=== PATIENT | male | born 1975 | race Caucasian/White ===

== ENCOUNTER → 2023-12-03 08:26 | Outpatient (REF) | payer OTHER, SELFPAY | LOC: RAD 08:26 | PROVIDERS: ATTENDING PHYSICIAN Internal Medicine Gastroenterology; FAMILY PHYSICIAN Family Medicine | DX: R10.13 Epigastric pain (principal) | CPT/HCPCS: 76700 ==

== ENCOUNTER → 2024-02-04 06:29 | Day surgery (SDC) | payer OTHER, SELFPAY | LOC: GI 06:29 | PROVIDERS: ATTENDING PHYSICIAN Internal Medicine Gastroenterology | DX: K44.9 Diaphragmatic hernia without obstruction or gangrene (principal); K31.7 Polyp of stomach and duodenum; R10.13 Epigastric pain | CPT/HCPCS: 43239; 88305; 88342 ==

== ENCOUNTER → 2024-07-02 13:08 | Outpatient (REF) | payer OTHER, SELFPAY | LOC: RCS 13:08 | PROVIDERS: ATTENDING PHYSICIAN Internal Medicine Cardiovascular Disease; FAMILY PHYSICIAN Family Medicine | DX: I25.10 Atherosclerotic heart disease of native coronary artery without angina pectoris (principal) | CPT/HCPCS: 93017 ==

== ENCOUNTER 2024-12-25 16:56 | Observation (INO) | payer OTHER, SELFPAY ==
[2024-12-25 15:10] VITALS: BP 162/119
[2024-12-25 15:13] LABS: Glucose - Point of Care 127 mg/dl (70-99)
--- NOTE | 2024-12-25 15:16 | ED.CVA ---
History of Present Illness
<Dragan Larson PA-C - Last Filed: 12/25/24 19:08>
General
Chief Complaint: CVA/TIA Symptoms
Source: patient and ambulance crew
Time Seen by Provider: 12/25/24 15:08
Onset of Stroke Symptoms
Onset of symptoms known: Yes
Date of onset of symptoms: 12/25/24
Time of onset of symptoms: 14:20
History of Present Illness
History of Present Illness:
49-year-old male with past medical history of hyperlipidemia presenting to the emergency department for evaluation after he was sitting on his couch holding his iPad doing some work when he noticed numbness to fingertips on the right that started to
go up his arm and into the right side of his face which has been constant. Patient states that he feels like he needs to talk out of the left side of his mouth due to the right side not functioning properly. Denies any history of similar, denies
any headaches. Denies any chest pain, shortness of breath, palpitations, visual disturbances, lower extremity symptoms or any other concerns. Patient notes that his grandmother had a history of CVA and that his mother and brother have a history of
a clotting disorder but patient himself does not have any diagnosed clotting disorder. He is not on any anticoagulant medication. Social history was negative for any cigarette or tobacco use.
Past History
<Dragan Larson PA-C - Last Filed: 12/25/24 19:08>
Past History
ED Past Medical History: Hypercholesterolemia
ED Past Surgical History: None
Social History
Tobacco: Non-smoker
Alcohol: None
Drug: None
Personal:
Living: with family
Employment: Employed
Family History
Family History: Other (Grandmother CVA)
Review of Systems
<Dragan Larson PA-C - Last Filed: 12/25/24 19:08>
Review of Systems
All Other Systems: ROS reviewed and negative except as documented in HPI and ROS
Phy Exam
<Dragan Larson PA-C - Last Filed: 12/25/24 19:08>
Physical Exam
Physical Exam:
GENERAL: Alert , in no apparent distress
EYE: pupils equal and reactive, 4 mm bilateral, EOMI, no field cuts
NECK: Supple
ENT: o/p clr, mmm. No tongue deviation or fasciculation
CARDIAC: Regular rate and rhythm , no murmur.
LUNGS: Clear breath sounds bilaterally, no acute respiratory distress, no wheezes/rales/rhonchi
ABDOMEN: Soft, without focal tenderness, no r/g, no cvat
NEUROLOGICAL: Alert and oriented, mild right-sided facial droop, sensory to the right upper extremity slightly diminished when compared to the left
SKIN: Warm and dry, skin intact.
MUSCULOSKELETAL: No edema, well perfused.
PSYCH: Normal and appropriate interaction.
Scores
<Dragan Larson PA-C - Last Filed: 12/25/24 19:08>
NIH Stroke Score
Level of Consciousness: 0 - Alert
LOC Questions: 0-Answers both correctly
LOC Commands: 0-Performs both correctly
Best Horizontal Gaze: 0-Normal
Visual [place]: 0=Normal, no visual loss
Facial Palsy: 1=Minor paralysis
Motor - Right Arm: 0=No drift 10 seconds
Motor - Left Arm: 0=No drift 10 seconds
Motor - Right Le-No drift 5 seconds
Motor - Left Le-No drift 5 seconds
Limb Ataxia: 0-Absent
Sensation: 1-Mild loss
Best Language: 0-No aphasia
Dysarthria: 0-Normal
Extinction and Inattention: 0-No abnormality
Total Score:: 2
Thrombolytic Contraindication
Inclusion and Exclusion criteria reviewed: Yes
IAT Contraindications: NIHSS < 6
Heart Failure Risk
Heart Failure Risk Score: Not Applicable
Heart Score for Chest Pain Patients
STEMI patient?: Not applicable
Withdrawal Assessment of Alcohol
Withdrawal Assessment Completed?: Not applicable
<Cruz Thapa DO - Last Filed: 12/25/24 15:27>
NIH Stroke Score
Total Score:: 2
Course
<Dragan Larson PA-C - Last Filed: 12/25/24 19:08>
Orders/Labs/Results
Orders:
Orders
12/25/24 15:09
Electrocardiogram (*1) Urgent
Reason for Study: TIA/Stroke
12/25/24 15:10
EKG- Treatment ONCE
12/25/24 15:14
CT HEAD STROKE ALERT W/o Cont Urgent
Comment:
Reason For Exam: RUE numbness/right facial droop
CT HEAD/NECK ANG STROKE ALERT Urgent
Comment:
Reason For Exam: RUE numbness/right facial droop
Cardiac Monitoring- Treatment ONCE
12/25/24 15:15
Electrocardiogram (*1) Stat
Reason for Study: Other
Other Reason for Exam: neuro symptoms
EKG- Treatment ONCE
12/25/24 15:21
Complete Blood Count/With Diff Urgent
Comprehensive Metabolic Panel Urgent
Direct Bilirubin Urgent
LDH Urgent
PTT Urgent
Prothrombin Time Urgent
Reticulocyte Count Urgent
Comment: ADD ON
Troponin I Urgent
12/25/24 15:25
0.9% Sodium Chloride 1000 ml [Nss] 1,000 ml IV BOLUS
12/25/24 15:58
Clopidogrel Bisulfate [Plavix] 600 mg PO NOW STA
12/25/24 16:28
Add On- LAB Routine
Tests Added?: LDH, retics, direct bili
12/25/24 16:30
US Abdomen Complete/Upper Routine
Comment:
Reason For Exam: elevated bili
12/25/24 16:38
Admit/Transfer Patient As Directed
Co-Sign Provider:
Level of Care: Observation services
Assign to:: Telemetry
Physician / Group: Haresh Rivers
Diagnosis: CVA/TIA
Reason for Telemetry: CVA/TIA
Date to Stop Telemetry: 12/28/24
Time to Stop Telemetry: 11:00
PRN Pain Medication Management As Directed
May give lesser potent ordered pain med per pt: Yes
preference::
Protocol:: Medication orders for pain may be administered in a
manner that supports deferring to patient preference
when the pt is:
- Requesting an ordered lesser potent pain medication.
Least to most potent pain medications are defined
as: acetaminophen < NSAID < tramadol < opioids
(morphine, oxycodone, hydromorphone).
- Requesting a lesser dose of the same medication IF
ORDERED.
- Requesting a less intrusive route of administration
if both routes are prescribed by the provider (PO <
IV).
12/25/24 16:40
Code Status As Directed
Resuscitation Status: Full Code
12/25/24 16:48
MR Brain Without Contrast Routine
Comment:
Reason For Exam: stroke
OK for patient to be off Cardiac Monitoring for MRI: No
Recent pill cam endoscopy?: No
12/25/24 17:32
Hemoglobin A1c [Glycohemoglobin (HgbA1c)] Routine
Lipid Profile [Cardiovascular Evaluation] Routine
12/25/24 18:46
Acetaminophen [Tylenol] 650 mg PO Q4HPRN PRN
Atorvastatin [Lipitor] 80 mg PO QPM
KCl 20 Meq/D5.9%Sodchl 1000 ml [D5/0.9% with KCL 20 MEQ] 20 meq in 1,000 ml IV 100 mls/hr
Labetalol HCl [Trandate] 10 mg IV Q6HPRN PRN
12/25/24 18:46
Echo 2D MMode Color/Doppler Routine
Reason for Study: stroke/TIA
Case Management Consult ONCE
Case Management Consult: Discharge Planning
Comment: stroke/tia
DIETARY IP CONSULT Routine
Reason for Consult: stroke/TIA
NEUROLOGY CONSULT Urgent
Consulting Provider: Peggy Collins
Was physician already notified: Yes
[facility] Practitioner Urgent
MR Brain Without Contrast Routine
Comment:
Reason For Exam: stroke/TIA
Recent pill cam endoscopy?: No
Activity As Directed
Activity Level: Out of Bed-Early Mobility
INT (Intravenous Needle Therapy) As Directed
NIH Stroke Scale As Directed
Directions: Per protocol
Comment: every shift and with any change in condition or mental status
Neurological Checks As Directed
Frequency: q4h
Additional Instructions:: q4h x 24h upon admission to the floor, then qshift & with any change in condition
and mental status
Patient Education As Directed
Type: Stroke education packet
Comment: provide to patient and family
Pneumatic Compression Sleeves As Directed
Type: Knee high
Swallow Screening CVA/TIA ONLY As Directed
Comment: NPO until swallowing screening completed
If patient FAILS swallow screening:: NPO, Speech Therapy consult, Aspiration Precautions
If patient PASSES swallow screening, diet:: Cholesterol Lowering
Vital Signs As Directed
Frequency: Per unit guidelines
Ot Eval And Treat Routine
Pt Eval And Treat Routine
Activity Level: Out of Bed-Early Mobility
Speech Therapy Eval & Treat Routine
DX Deep Vein Thrombosis Video Routine
12/25/24 20:00
Thiamine HCl [Vitamin B1] 100 mg PO BID
12/25/24 22:00
Aspirin Low Dose EC [Aspir Low (Enteric Coated)] 81 mg PO HS
Ezetimibe [Zetia] 10 mg PO HS
12/26/24 06:00
Cardiovascular Evaluation IN AM
Hepatitis B Core Ab, Total IN AM
Hepatitis B Surface Antibody IN AM
Hepatitis B Surface Antigen IN AM
Hepatitis C Antibody IN AM
LFT [[id number]-[id number]] IN AM
TSH IN AM
12/26/24 08:00
Clopidogrel Bisulfate [Plavix] 75 mg PO DAILY
FOLic ACID [Folvite] 1 mg PO DAILY
12/28/24 11:00
DC Protocol for Telemetry ONCE
Abnormal Lab Results
12/25/24 12/25/24
15:12 15:21
MCH 32.2 H pg
(27.0-31.0)
Monocytes % 10.6 H %
(1.7-9.3)
Glucose 131 H mg/dl
(70-99)
Total Bilirubin 2.3 H mg/dl
(0.2-1.3)
ALT 60 H U/L
(0-50)
POC Glucose 127 H mg/dl
(70-99)
12/25/24 15:21
12/25/24 15:21
Vital Signs
Initial and Last Documented VS:
Initial Vital Signs
Temp Pulse Resp BP Pulse Ox
98.2 F 87 18 162/119 96
12/25/24 15:10 12/25/24 15:10 12/25/24 15:10 12/25/24 15:10 12/25/24 15:10
Last Documented Vital Signs
Temp Pulse Resp BP Pulse Ox
98.2 F 87 18 162/119 96
12/25/24 15:10 12/25/24 15:10 12/25/24 15:10 12/25/24 15:10 12/25/24 15:10
<Cruz Thapa, DO - Last Filed: 12/25/24 15:27>
Orders/Labs/Results
Orders:
Orders
12/25/24 15:09
Electrocardiogram (*1) Urgent
Reason for Study: TIA/Stroke
12/25/24 15:10
EKG- Treatment ONCE
12/25/24 15:14
CT HEAD STROKE ALERT W/o Cont Urgent
Comment:
Reason For Exam: RUE numbness/right facial droop
CT HEAD/NECK ANG STROKE ALERT Urgent
Comment:
Reason For Exam: RUE numbness/right facial droop
Cardiac Monitoring- Treatment ONCE
12/25/24 15:15
Electrocardiogram (*1) Stat
Reason for Study: Other
Other Reason for Exam: neuro symptoms
EKG- Treatment ONCE
12/25/24 15:21
Complete Blood Count/With Diff Urgent
Comprehensive Metabolic Panel Urgent
Direct Bilirubin Urgent
LDH Urgent
PTT Urgent
Prothrombin Time Urgent
Reticulocyte Count Urgent
Comment: ADD ON
Troponin I Urgent
12/25/24 15:25
0.9% Sodium Chloride 1000 ml [Nss] 1,000 ml IV BOLUS
12/25/24 15:58
Clopidogrel Bisulfate [Plavix] 600 mg PO NOW STA
12/25/24 16:28
Add On- LAB Routine
Tests Added?: LDH, retics, direct bili
12/25/24 16:30
US Abdomen Complete/Upper Routine
Comment:
Reason For Exam: elevated bili
12/25/24 16:38
Admit/Transfer Patient As Directed
Co-Sign Provider:
Level of Care: Observation services
Assign to:: Telemetry
Physician / Group: Haresh Rivers
Diagnosis: CVA/TIA
Reason for Telemetry: CVA/TIA
Date to Stop Telemetry: 12/28/24
Time to Stop Telemetry: 11:00
PRN Pain Medication Management As Directed
May give lesser potent ordered pain med per pt: Yes
preference::
Protocol:: Medication orders for pain may be administered in a
manner that supports deferring to patient preference
when the pt is:
- Requesting an ordered lesser potent pain medication.
Least to most potent pain medications are defined
as: acetaminophen < NSAID < tramadol < opioids
(morphine, oxycodone, hydromorphone).
- Requesting a lesser dose of the same medication IF
ORDERED.
- Requesting a less intrusive route of administration
if both routes are prescribed by the provider (PO <
IV).
12/25/24 16:40
Code Status As Directed
Resuscitation Status: Full Code
12/25/24 16:48
MR Brain Without Contrast Routine
Comment:
Reason For Exam: stroke
OK for patient to be off Cardiac Monitoring for MRI: No
Recent pill cam endoscopy?: No
12/25/24 17:32
Hemoglobin A1c [Glycohemoglobin (HgbA1c)] Routine
Lipid Profile [Cardiovascular Evaluation] Routine
12/25/24 18:46
Acetaminophen [Tylenol] 650 mg PO Q4HPRN PRN
Atorvastatin [Lipitor] 80 mg PO QPM
KCl 20 Meq/D5.9%Sodchl 1000 ml [D5/0.9% with KCL 20 MEQ] 20 meq in 1,000 ml IV 100 mls/hr
Labetalol HCl [Trandate] 10 mg IV Q6HPRN PRN
12/25/24 18:46
Echo 2D MMode Color/Doppler Routine
Reason for Study: stroke/TIA
Case Management Consult ONCE
Case Management Consult: Discharge Planning
Comment: stroke/tia
DIETARY IP CONSULT Routine
Reason for Consult: stroke/TIA
NEUROLOGY CONSULT Urgent
Consulting Provider: Peggy Collins
Was physician already notified: Yes
[facility] Practitioner Urgent
MR Brain Without Contrast Routine
Comment:
Reason For Exam: stroke/TIA
Recent pill cam endoscopy?: No
Activity As Directed
Activity Level: Out of Bed-Early Mobility
INT (Intravenous Needle Therapy) As Directed
NIH Stroke Scale As Directed
Directions: Per protocol
Comment: every shift and with any change in condition or mental status
Neurological Checks As Directed
Frequency: q4h
Additional Instructions:: q4h x 24h upon admission to the floor, then qshift & with any change in condition
and mental status
Patient Education As Directed
Type: Stroke education packet
Comment: provide to patient and family
Pneumatic Compression Sleeves As Directed
Type: Knee high
Swallow Screening CVA/TIA ONLY As Directed
Comment: NPO until swallowing screening completed
If patient FAILS swallow screening:: NPO, Speech Therapy consult, Aspiration Precautions
If patient PASSES swallow screening, diet:: Cholesterol Lowering
Vital Signs As Directed
Frequency: Per unit guidelines
Ot Eval And Treat Routine
Pt Eval And Treat Routine
Activity Level: Out of Bed-Early Mobility
Speech Therapy Eval & Treat Routine
DX Deep Vein Thrombosis Video Routine
12/25/24 20:00
Thiamine HCl [Vitamin B1] 100 mg PO BID
12/25/24 22:00
Aspirin Low Dose EC [Aspir Low (Enteric Coated)] 81 mg PO HS
Ezetimibe [Zetia] 10 mg PO HS
12/26/24 06:00
Cardiovascular Evaluation IN AM
Hepatitis B Core Ab, Total IN AM
Hepatitis B Surface Antibody IN AM
Hepatitis B Surface Antigen IN AM
Hepatitis C Antibody IN AM
LFT [[id number]] IN AM
TSH IN AM
12/26/24 08:00
Clopidogrel Bisulfate [Plavix] 75 mg PO DAILY
FOLic ACID [Folvite] 1 mg PO DAILY
12/28/24 11:00
DC Protocol for Telemetry ONCE
Abnormal Lab Results
12/25/24 12/25/24
15:12 15:21
MCH 32.2 H pg
(27.0-31.0)
Monocytes % 10.6 H %
(1.7-9.3)
Glucose 131 H mg/dl
(70-99)
Total Bilirubin 2.3 H mg/dl
(0.2-1.3)
ALT 60 H U/L
(0-50)
POC Glucose 127 H mg/dl
(70-99)
12/25/24 15:21
12/25/24 15:21
Vital Signs
Initial and Last Documented VS:
Initial Vital Signs
Temp Pulse Resp BP Pulse Ox
98.2 F 87 18 162/119 96
12/25/24 15:10 12/25/24 15:10 12/25/24 15:10 12/25/24 15:10 12/25/24 15:10
Last Documented Vital Signs
Temp Pulse Resp BP Pulse Ox
98.2 F 87 18 162/119 96
12/25/24 15:10 12/25/24 15:10 12/25/24 15:10 12/25/24 15:10 12/25/24 15:10
<Dragan Larson PA-C - Last Filed: 12/25/24 19:08>
MDM/Problems Addressed
Differential Diagnosis Includes:
CVA, malignancy, intracranial bleeding, hypertensive urgency, complex/atypical migraine
MDM/Problems Addressed:
49-year-old male presenting to the ER for evaluation after he had sudden onset right upper extremity numbness and facial numbness starting at 2:20 PM this afternoon, symptoms continue on arrival to the ER. Given his presentation, history and family
history decision was made to call a stroke alert. CT and CTA of the head and neck ordered. Patient's arriving blood pressure noted. Will consult with neurology. Disposition pending
<Dragan Larson PA-C - Last Filed: 12/25/24 19:08>
*Radiology
Radiology exam reviewed: radiology read reviewed
*Pulse Oximetry
Patient hypoxic: no
*Critical Care Note
Total Time (30-74mins, 75-104mins- exclusive of procedures): Not Applicable
<Dragan Larson PA-C - Last Filed: 12/25/24 19:08>
Patient Management
Discussion with other providers: Hospitalist and Nurse Practitioner Hospitalist
Escalation/DeEscalation of care consider admission/obs:
3:25 PM: Case discussed with neurology who states that given the patient's low NIH score, will hold on TNK for now. If patient's NIH or symptoms worsen we can then treat with TNK. CT scans pending at this time.
CT scan does show narrowing of the left M2 segment. Neurology is aware of this finding. They are ordering 600 mg Plavix orally. Hospitalist team to admit.
ED Attending Note
<Dragan Larson PA-C - Last Filed: 12/25/24 19:08>
-
Portions of this chart may have been created with voice recognition software.� Occasional wrong word or��sound alike� substitutions may have occurred due to the inherent limitations of voice recognition software.
<Cruz Thapa DO - Last Filed: 12/25/24 15:27>
ED Attending Note
Patient seen and examined by attending physician: Yes
I performed the substantive portion of visit, reviewed & personally made and approve the management plan that is documented in note by myself or CARMEN.: Yes
ED Attending Note:
I have seen and evaluated the patient with a [id number] encounter. I have spoken to the advance practicer provider and involved in the medical history, the physical exam, medical decision making.
Evaluation and management service: agree unless noted differently below.
Results interpretation: agree unless noted differently below.
Focused HPI: 49-year-old male presenting with sudden onset of tingling in his right hand. It did extend to his face. This occurred just about an hour prior to arrival so he called 911
Physical exam: Sitting in bed comfortably. His deficit appears to be sensory
Medical Decision Making: Case discussed with neurology. Will hold TNK at the moment given that his deficits are so minimal. Will consider TNK if symptoms worsen
Discharge Plan
Departure
Patient Disposition: Admit
Date of Disposition: 12/25/24
Time of Disposition: 15:57
Presentation/result/management discussed w/ accepting MD/DO: Hospitalist
Discharge Problem:
Ischemic cerebrovascular accident (CVA)
Interventions
Interventions:
*Risk Screen - Suicide Last Done: 12/25/24 15:10
*General Assessment Last Done: 12/25/24 18:56
*Neglect/Abuse Screening Last Done: 12/25/24 15:10
*ED- Fall Risk Assessment Last Done: 12/25/24 18:56
*ED COVID-19 Vaccine History Last Done: 12/25/24 15:10
*Nursing Disposition Last Done: 12/25/24 18:57
ED- Pulmonary Assessment Last Done: 12/25/24 15:48
ED- Neurological Assessment Last Done: 12/25/24 15:48
ED- Cardiac Assessment Last Done: 12/25/24 15:48
ED Swallowing Screen Last Done: 12/25/24 15:48
Discharge Date and Time
Discharge Date/Time: 12/25/24 18:58
--- NOTE | 2024-12-25 15:33 | CON.NEURO ---
Consultation
Order
Date of Consultation: 12/25/24
Requesting Provider: Dragan Larson PA-C
Reason for Consult: Stroke alert
Called in: [id number]
Neurology Consultation Note.
HPI: This is a 49-year-old right-handed man who presented to [facility] on 12/25/2024 with sensory deficits. According to the patient he developed numbness and tingling in his fingertips, which rapidly progressed to involve the right
side of his face around 2:20 PM. The patient reports difficulty maintaining his balance. No reports of right arm weakness, dysphasia, dysarthria change in vision, headache, abnormal movements with similar episodes in the past.
ER VS: 162/119, 87, afebrile
Labs: Glucose�131, total bilirubin�2.3, ALT�60, normal sodium, creatinine,
CT head wo contrast�no evidence of acute infarct
CTA head/neck�pending
PMH: DLP, accident involvement left hand injury at the age of 49, hepatic steatosis
PSH: Left hand surgery
SH: Non-smoker, feels financial services sales representative at [employer]
FH: Mother�DVT, brother�'rare clotting disorder ', maternal grandmother�stroke
All:NKDA
ROS: Constitutional: Negative. Negative for chills, fever and unexpected weight change.
HENT: Negative for ear pain, hearing loss, tinnitus and trouble swallowing.
Eyes: Negative. Negative for photophobia, pain and visual disturbance.
Respiratory: Negative for cough, choking and shortness of breath.
Cardiovascular: Negative for chest pain, palpitations and leg swelling.
Gastrointestinal: Negative for abdominal pain and vomiting.
Endocrine: Negative. Negative for cold intolerance.
Genitourinary: Negative for dysuria, flank pain and urgency.
Musculoskeletal: Negative for back pain, gait problem, neck pain and neck stiffness.
Skin: Negative for rash.
Allergic/Immunologic: Negative. Negative for immunocompromised state.
Neurological: Positive for right face and arm numbness, imbalance
Psychiatric/Behavioral: Negative for behavioral problems, confusion and hallucinations.
NIH Stroke Scale
1A Level of Consciousness: 0/3
1B LOC Questions: 0/2
1C LOC Commands: 0/2
2 Best Gaze: 0/2
3 Visual: 0/3
4 Facial Palsy: 0/3
5A Motor Arm LEFT: 0/4
5B Motor Arm RIGHT: 0/4
6A Motor Leg LEFT: 0/4
6B Motor Leg RIGHT: 0/4
7 Limb Ataxia: 0/2
8 Sensory: 1/2
9 Best Language: 0/3
10 Dysarthria: 0/2
11 Extinction/Inattention: 0/2
Total NIHSS: 1
Assessment and Plan:
I. Acute left thalamic syndrome. Not a candidate for IV TNK due to low NIH score.
II. HTN
III. DLP
-Continue Telemetry monitoring
-Neurocheck every 15 minutes until outside of of TNK administration window
-Please follow-up CTA results
-Brain MRI without robert
-Plavix 600 mg once followed by 75 mg once a day
-Lipitor 40 mg QHS.
-Please check HbA1C, LDL.
-TTE
-DVT prophylaxis.
I personally reviewed all radiology and labs along with past medical records pertinent to current medical problems. Total time spent in patient care is 60 minutes.
Thank you for allowing us to participate in the care of this patient. We will continue to follow. Please do not hesitate to contact us with any questions or concerns.
Subjective/Objective
Subjective Data
Date of Service: December 25, 2024
Objective Data
Vital Signs
Temp Pulse Resp BP Pulse Ox
36.8 C 87 18 162/119 96
12/25/24 15:10 12/25/24 15:10 12/25/24 15:10 12/25/24 15:10 12/25/24 15:10
Patient Allergies
No Known Allergies Allergy (Unverified 12/25/24 15:15)
[2024-12-25 15:36] LABS: % Basophils 0.2 % (0-2); % Eosinophils 0.5 % (0-6); % Immature Granulocytes 0.2 % (0-0.5); % Lymphocytes 29.8 % (20.5-51.1); % Monocytes 10.6 % (1.7-9.3); % Neutrophils 58.7 % (42.2-75.2); Absolute Lymphocytes 1.7 10^3/uL (1.2-3.4); Absolute Monocytes 0.6 10^3/uL (0.1-0.6); Absolute Neutrophils 3.3 10^3/uL (1.4-6.5); Hematocrit 44.6 % (39.0-52.0); Mean Corp Hgb Conc. 35.9 g/dL (33.0-37.0); Mean Corpuscular Hgb 32.2 pg (27.0-31.0); Mean Corpuscular Volume 89.7 fL (80.0-94.0); Mean Platelet Volume 10.1 fL (7.4-10.4); Nucleated Red Blood Cells % 0 % (-); Platelet Count 255 10^3/uL (130-400); Red Blood Cell Count 4.97 10^6/uL (4.70-6.10); Red Cell Dist. Width 11.9 % (11.5-14.5); White Blood Cell Count 5.7 10^3/uL (4.8-10.8)
[2024-12-25 15:43] LABS: INR 0.87; PT 12.3 Sec (11.4-14.6)
[2024-12-25 15:44] LABS: APTT 28.6 Sec (23.4-35.0)
[2024-12-25 15:45] LABS: ALT (SGPT) 60 U/L (0-50); AST (SGOT) 35 U/L (17-59); Alkaline Phosphatase 69 U/L (38-126); Blood Urea Nitrogen 12 mg/dl (9-20); Carbon Dioxide 25 mmol/L (22-30); Chloride 105 mmol/L (98-107); Glucose 131 mg/dl (70-99); Potassium 4.4 mmol/L (3.5-5.1); Sodium 141 mmol/L (135-145); Total Bilirubin 2.3 mg/dl (0.2-1.3); Total Protein 7.6 g/dl (6.3-8.2); eGFR > 60.00
[2024-12-25] MEDS: NSS 1000 IV (15:45)
[2024-12-25 15:56] LABS: Troponin I < 0.012 ng/ml
--- NOTE | 2024-12-25 16:00 | HPS.HSE ---
Family Physician
-
Family Physician: INTERVIEWE UNKNOWN - PT NOT
Chief Complaint
-
CVA/TIA symptoms
History of Present Illness
Patient is a 49-year-old male with past medical history significant for hyperlipidemia who presented to [facility] ED for evaluation of acute onset of right upper extremity and right facial numbness with onset around 1420 this afternoon. Patient reports
sitting on couch doing work on his Ipad when he experienced numbness and tingling in his right fingers that traveled up arm and into right side of face. Patient states symptoms are improving but continues to have numbness and tingling in right
finger tips. He denies any vision changes, chest pains, shortness of breath, palpitations and no lower extremity symptoms. Patient promptly called 911 for EMS. Patient reports frequent travel for work and flies almost weekly. He denies any
tobacco/smoking history. He reports he as of recent a daily drinker of approximately 3 bourbons a night.
Medical History
Past Medical History
Past Medical History: Reports Other
Additional Past Medical History:
hyperlipidemia
Past Surgical History: Reports None
Social History
Tobacco: Non-smoker
Alcohol: Daily (3- Bourbons daily )
Employment: Employed
Family History
Family History: Other (Father: ASCVD)
Allergies / Home Medications
Allergies reflects when Allergies were last updated in [employer].
Home Medications with original date entered in [employer]
Allergy/Medication List:
Allergies
Allergy/AdvReac Type Severity Reaction Status Date / Time
No Known Allergies Allergy Unverified 12/25/24 15:15
Home Medications
aspirin 81 mg tablet,delayed release 81 mg PO HS 12/25/24
atorvastatin 40 mg tablet 40 mg PO HS 12/25/24
ezetimibe 10 mg tablet 10 mg PO HS 12/25/24
Review of Systems
-
History Source: Patient
Constitutional: Reports No Symptoms
EENT: Reports No Symptoms
Respiratory: Reports No Symptoms
Cardiac: Reports No Symptoms
Abdomen/GI: Reports No Symptoms
: Reports No Symptoms
Musculoskeletal: Reports No Symptoms
Skin: Reports No Symptoms
Neurological: Reports Dizzy and Numbness (right fingers traveled up arm and into right side of face )
Endocrine: Reports No Symptoms
Hematologic/Lymphatic: Reports No Symptoms
Psych: Reports No Symptoms
Physical Exam
Vital Signs
Vital Signs
Temp Pulse Resp BP Pulse Ox
98.2 F 87 18 162/119 96
12/25/24 15:10 12/25/24 15:10 12/25/24 15:10 12/25/24 15:10 12/25/24 15:10
Physical Exam
General: Well Developed, Well Nourished, No Apparent Distress, Comfortable and Conversant
HEENT: NormoCephalic, Moist mucous membranes, Atraumatic, [place] Conjunctivae, Nose Appears Normal and Ears Appear Normal
Respiratory: Clear and Non Labored Respirations
Cardiac: S1/S2 and Regular Rhythm
Breast: Deferred by me
GI: Soft, Non Tender, Non Distended and Normal Bowel Sounds; No Organomegaly
Rectal: Deferred by Provider
Genito-urinary: Deferred by me
Musculoskeletal: No Clubbing, No Cyanosis and No Edema
Skin: No Rash
Neuro: Awake, Alert, AO x 3, Nonfocal/grossly intact, Slurred Speech and Other (right arm weakness )
Psych: Calm and Intact Judgment/Insight
Laboratory Results
-
12/25/24 15:21
12/25/24 15:21
Laboratory Results
PT 12.3 Sec (11.4-14.6) 12/25/24 15:21
INR 0.87 12/25/24 15:21
APTT 28.6 Sec (23.4-35.0) 12/25/24 15:21
Total Bilirubin 2.3 mg/dl (0.2-1.3) H 12/25/24 15:21
AST 35 U/L (17-59) 12/25/24 15:21
ALT 60 U/L (0-50) H 12/25/24 15:21
Alkaline Phosphatase 69 U/L (38-126) 12/25/24 15:21
Troponin I < 0.012 ng/ml 12/25/24 15:21
Data Reviewed
-
CT Scan: Report Reviewed by me (Head CT: No acute intracranial abnormality. ASPECT score: 10; Head/Neck CTA: CTA Head: There is no large vessel occlusion. There is focal high-grade stenosis within the proximal aspect of the inferior division of the
left M2 segment of the middle cerebral artery. No aneurysm. CTA Neck: No signific)
Lab Data: Labs Reviewed by me
Impression/Plan
-
IMPRESSION/PLAN:
#CVA/TIA symptoms
right upper extremity numbness and tingling associated with right side facial numbness
Head CT: No acute intracranial abnormality.
ASPECT score: 10
Head/Neck CTA: CTA Head: There is no large vessel occlusion. There is focal high-grade stenosis within the proximal aspect of the inferior division of the left M2 segment of the middle cerebral artery. No aneurysm.
CTA Neck: No significant arterial stenosis. Four vessel aortic arch with aortic origin of the left vertebral artery.
- Admit to telemetry
- Consult Neurology
- start Plavix
- NIH
- Neuro checks
- No TNK, consider TNK if NIH worsens
- permissive HTN; Labetalol PRN for BP 185/105
- NPO pending METHODS EXAMINER
#elevated bilirubin
#mild ALT elevation
denies any abdominal pain
- hepatitis panel
- US QRUQ
- trend LFTs
#alcohol dependency unclear if abuse
3 bourbons daily
- monitor for withdraw
- educate on cessation
- thiamine/folate
#hyperlipidemia
- continue aspirin and ezetimibe
- increase atorvastatin to 80mg daily
Code status: full code
DVT prophylaxis: SCDs
--- NOTE | 2024-12-25 16:30 | W.PN.UPDATE ---
Update Note
Progress Note Update
I have examined the patient independently and agree with H&P written on the same date, in addition:
49yo M with PMHx of HLD, ASCVD came with acute onset of paresthesia started with R fingers and traveled up his arm and to his R face, with feeling of numbness. Neurologist assessed patient and deemed not a candidate for TNK 2/2 low NIH score. CTA
reviewed by ED doctor with neurologist and no LVO identified, but focal high-grade stenosis within the proximal aspect of the inferior division of the left M2 segment of the middle cerebral artery. No carotid stensosi identified
A/P:
#CTA vs TIA
MRI brain
neurochecks
permissive HTN, use labetalol IV if BP>185/105
Atorvastatin 80mg, Plavix 75mg (after load in ED)
cont Zetia
check Lipids, TSH, HgbA1c
PT/OT
NPO until HR ADVISOR, D5 meanwhile
Neurologist consult
#Elevated bilirubin
#Mild ALT elevation
hepatitis panel, US QRUQ
Check direct bili, LDH, retics
follow LFT
no abd pain identified
#Alcohol use, unclear if abuse
watch for withdrawal, no need in MSAS currently
Thiamine/folate
Counseled on cessation
#HLD
check lipid profile
DVT ppx SCDs
Full code
I have spent at least 79min reviewing chart, test results, providing direct patient care
[2024-12-25 17:31] LABS: Reticulocyte Count 1.9 % (0.4-2.8)
[2024-12-25] MEDS: PLAVIX 600 MG PO (17:31)
[2024-12-25 17:52] LABS: Direct Bilirubin 0.2 mg/dl (0.0-0.4); LDH 234 U/L (120-246)
[2024-12-25 17:56] LABS: HDL Cholesterol 94 mg/dl; LDL Cholesterol, Calculated 69 mg/dl; Total Cholesterol 192 mg/dl (50-199); Triglyceride 147 mg/dl (10-149); Very Low Density Lipoprotein 29 mg/dl (0-30)
[2024-12-25 19:00] VITALS: BP 135/80; BMI 26.4
[2024-12-25] MEDS: ASPIR LOW (ENTERIC COATED) 81 MG PO (20:17)
[2024-12-25] MEDS: D5/0.9% SODIUM CHLORIDE 1000 IV (20:17)
[2024-12-25] MEDS: LIPITOR 80 MG PO (20:17)
[2024-12-25] MEDS: ZETIA 10 MG PO (20:17)
[2024-12-25] MEDS: VITAMIN B1 100 MG PO (20:17)
[2024-12-25 23:00] VITALS: BP 108/70
[2024-12-26 03:00] VITALS: BP 115/78
[2024-12-26 06:46] LABS: ALT (SGPT) 46 U/L (0-50); AST (SGOT) 27 U/L (17-59); Alkaline Phosphatase 58 U/L (38-126); HDL Cholesterol 72 mg/dl; LDL Cholesterol, Calculated 67 mg/dl; Total Bilirubin 2.7 mg/dl (0.2-1.3); Total Cholesterol 164 mg/dl (50-199); Total Protein 6.1 g/dl (6.3-8.2); Triglyceride 126 mg/dl (10-149); Very Low Density Lipoprotein 25 mg/dl (0-30)
[2024-12-26] MEDS: D5/0.9% SODIUM CHLORIDE 1000 IV (07:04)
[2024-12-26 07:12] LABS: TSH 2.59 uIU/ml (0.47-4.68)
[2024-12-26 07:13] LABS: Hepatitis B Surface Antigen Negative (Negative)
[2024-12-26 07:16] VITALS: BP 128/91
[2024-12-26 07:32] LABS: Hepatitis B Surface Antibody Negative; Hepatitis C Antibody Negative (Negative)
[2024-12-26 07:50] LABS: Hepatitis B Core Ab, Total Negative (Negative)
[2024-12-26] MEDS: FOLVITE 1 MG PO (08:07)
[2024-12-26] MEDS: PLAVIX 75 MG PO (08:07)
[2024-12-26] MEDS: VITAMIN B1 100 MG PO (08:07)
--- NOTE | 2024-12-26 08:47 | W.PN.NEURO.1 ---
Today's Communication / Plan
-
.
Subjective/Objective
Subjective Data
Date of Service: December 26, 2024
Neurology follow-up note
Mr. Araiza reports transient headache yesterday. He continues to have right face and arm numbness. No change in vision, language, speech, strength.
The patient has been normotensive.
CTA head shwoed focal high-grade stenosis of the left M2 segment.
LDL�67, hemoglobin A1c�pending
PMH: DLP, accident involvement left hand injury at the age of 49, hepatic steatosis
PSH: Left hand surgery
SH: Non-smoker, feels regional sales manager at [employer]
FH: Mother�DVT, brother�'rare clotting disorder ', maternal grandmother�stroke
All:NKDA
ROS: Constitutional: Negative. Negative for chills, fever and unexpected weight change.
HENT: Negative for ear pain, hearing loss, tinnitus and trouble swallowing.
Eyes: Negative. Negative for photophobia, pain and visual disturbance.
Respiratory: Negative for cough, choking and shortness of breath.
Cardiovascular: Negative for chest pain, palpitations and leg swelling.
Gastrointestinal: Negative for abdominal pain and vomiting.
Endocrine: Negative. Negative for cold intolerance.
Genitourinary: Negative for dysuria, flank pain and urgency.
Musculoskeletal: Negative for back pain, gait problem, neck pain and neck stiffness.
Skin: Negative for rash.
Allergic/Immunologic: Negative. Negative for immunocompromised state.
Neurological: Positive for right face and arm numbness
Psychiatric/Behavioral: Negative for behavioral problems, confusion and hallucinations.
General: Well developed. In no acute distress.
Cardio: Regular rate and rhythm without murmur. Extremities are without cyanosis or edema.
Neuro:
Mental Status: Alert, oriented to person, place, and date. Normal attention and recall. Good fund of knowledge. Follows complex requests across the midline. Comprehension, naming, and repetition intact. Immediate and delayed recall 3/3.
Cranial Nerves: Unable to visualize optic discs due to insufficient dilatation. Pupils are equally round and reactive to light. EOMs full. Visual martinez full to confrontation. No ptosis. No nystagmus. V1-V3 intact to light touch and pinprick
bilaterally, symmetric. Right nasolabial fold flattening. No asymmetry on activation. Normal hearing AU. The palate elevated well. SCMs and traps 5/5. Tongue midline. No dysarthria.
Motor: Normal bulk and tone. No pronator or arm drift. Strength 5/5 throughout. No clonus.
Sensory: Reduced light touch in the right face and arm. No extinction to DSS
Coordination: Dysmetria on the right
Gait: deferred
Assessment and Plan:
I. Acute left MCA territory syndrome.
II. Family history of thrombophilia
III. DLP
-Continue Telemetry monitoring
-DAPT for 3 weeks
-Lipitor 40 mg QHS.
-Please check HbA1C
-Brain MRI without robert
-Thrombophilia blood work
-Further workup will depend on brain MRI results
-DVT prophylaxis.
I personally reviewed all radiology and labs along with past medical records pertinent to current medical problems. Total time spent in patient care is 35 minutes.
Thank you for allowing us to participate in the care of this patient. We will continue to follow. Please do not hesitate to contact us with any questions or concerns.
Objective Data
Vital Signs
Temp Pulse Resp BP Pulse Ox
36.6 C 70 18 128/91 98
12/26/24 07:16 12/26/24 07:16 12/26/24 07:16 12/26/24 07:16 12/26/24 07:16
Lab Results
12/25/24 15:21
12/25/24 15:21
PT 12.3 Sec (11.4-14.6) 12/25/24 15:21
INR 0.87 12/25/24 15:21
APTT 28.6 Sec (23.4-35.0) 12/25/24 15:21
Sodium 141 mmol/L (135-145) 12/25/24 15:21
Potassium 4.4 mmol/L (3.5-5.1) 12/25/24 15:21
BUN 12 mg/dl (9-20) 12/25/24 15:21
Glucose 131 mg/dl (70-99) H 12/25/24 15:21
Calcium 10.0 mg/dl (8.4-10.2) 12/25/24 15:21
LDL Cholesterol, Calc 67 mg/dl 12/26/24 05:40
Patient Allergies
No Known Allergies Allergy (Unverified 12/25/24 15:15)
Vital Signs and Labs
-
Vital Signs and Labs:
Vital Signs
Temp Pulse Resp BP Pulse Ox
36.6 C 70 18 128/91 98
12/26/24 07:16 12/26/24 07:16 12/26/24 07:16 12/26/24 07:16 12/26/24 07:16
Lab Results
12/25/24 15:21
12/25/24 15:21
PT 12.3 Sec (11.4-14.6) 12/25/24 15:21
INR 0.87 12/25/24 15:21
APTT 28.6 Sec (23.4-35.0) 12/25/24 15:21
Sodium 141 mmol/L (135-145) 12/25/24 15:21
Potassium 4.4 mmol/L (3.5-5.1) 12/25/24 15:21
BUN 12 mg/dl (9-20) 12/25/24 15:21
Glucose 131 mg/dl (70-99) H 12/25/24 15:21
Calcium 10.0 mg/dl (8.4-10.2) 12/25/24 15:21
LDL Cholesterol, Calc 67 mg/dl 12/26/24 05:40
Medications
-
Medications:
Generic Name Dose Route Start Last Admin
Trade Name Freq PRN Reason Stop Dose Admin
Acetaminophen 650 mg 12/25/24 18:46
Acetaminophen 325 Mg Tablet PO 01/22/25 18:45
Q4HPRN PRN
ALVARENGA, mild pain, or temp >100.4F
Aspirin 81 mg 12/25/24 22:00 12/25/24 20:17
Aspirin 81 Mg (Enteric Coated) Tablet PO 01/22/25 21:59 81 mg
HS FLACO Administration
Atorvastatin Calcium 80 mg 12/25/24 18:46 12/25/24 20:17
Atorvastatin (Lipitor) 80 Mg Tablet PO 01/22/25 18:45 80 mg
QPM FLACO Administration
Clopidogrel Bisulfate 75 mg 12/26/24 08:00 12/26/24 08:07
Clopidogrel 75 Mg Tablet PO 01/23/25 07:59 75 mg
DAILY FLACO Administration
Ezetimibe 10 mg 12/25/24 22:00 12/25/24 20:17
Ezetimibe (Zetia) 10 Mg Tablet PO 01/22/25 21:59 10 mg
HS FLACO Administration
Folic Acid 1 mg 12/26/24 08:00 12/26/24 08:07
Folic Acid 1 Mg Tablet PO 01/23/25 07:59 1 mg
DAILY FLACO Administration
Dextrose/Sodium Chloride 1,000 mls @ 100 mls/hr 12/25/24 20:00 12/26/24 07:04
D5/0.9% Sodium Chloride IV 1,000 mls
.Q10H FLACO Administration
Labetalol HCl 10 mg 12/25/24 18:46
Labetalol Hcl 5 Mg/1 Ml (20 Mg/4 Ml) Injection IV 01/22/25 18:45
Q6HPRN PRN
BP>185/105
Sodium Chloride 0 flush 12/25/24 19:00
Sodium Chloride 0.9% (Flush) Syringe IV 01/22/25 18:59
PER PROTOCOL FLACO
Thiamine HCl 100 mg 12/25/24 20:00 12/26/24 08:07
Thiamine 100 Mg Tablet PO 01/22/25 19:59 100 mg
BID FLACO Administration
Home Medications
-
Home Medications
aspirin 81 mg tablet,delayed release 81 mg PO HS Blood Clot Prevention/Tx 12/25/24
atorvastatin 40 mg tablet 40 mg PO HS High Cholesterol 12/25/24
ezetimibe 10 mg tablet 10 mg PO HS High Cholesterol 12/25/24
[2024-12-26 09:30] LABS: Glycohemoglobin (HgbA1c) 5.5 % (4.0-5.6)
--- NOTE | 2024-12-26 09:47 | W.PN.HOSP.TC ---
Today's Communication/Plan
-
intermittent paresthesia of RUE and R face still reoccurs
pending Echo, MRI
Assessment / Plan
Assessment / Plan
49yo M with PMHx of HLD, ASCVD came with acute onset of paresthesia started with R fingers and traveled up his arm and to his R face, with feeling of numbness. Neurologist assessed patient and deemed not a candidate for TNK 2/2 low NIH score. CTA
reviewed by ED doctor with neurologist and no LVO identified, but focal high-grade stenosis within the proximal aspect of the inferior division of the left M2 segment of the middle cerebral artery. No carotid stensosi identified
A/P:
#CTA vs TIA
#focal high-grade stenosis within the proximal aspect of the inferior division of the left M2 segment of the middle cerebral artery
MRI brain
Echo
telemetry
neurochecks
permissive HTN, use labetalol IV if BP>185/105
Atorvastatin 80mg, Plavix 75mg (after load in ED) additional to ASA
cont Zetia
TSH HgbA1c WNL
PT/OT
NPO until VEGETABLE BUNCHER, D5 meanwhile
Neurologist consult: thrombophilia w/u
#Elevated bilirubin
#Mild ALT elevation
hepatitis panel, US QRUQ
Check direct bili, LDH, retics
follow LFT
no abd pain identified
#Alcohol use, unclear if abuse
watch for withdrawal, no need in MSAS currently
Thiamine/folate
Counseled on cessation
#HLD
LDL WNL
DVT ppx SCDs
Full code
I have spent at least 79min reviewing chart, test results, providing direct patient care
Anticipated Discharge: 24 - 48 hours
Subjective/Interval History
-
Date of Service: December 26, 2024
Objective Data
-
Labs:
Laboratory Results
12/26/24
05:40
Total Bilirubin 2.7 H
AST 27
ALT 46
Alkaline Phosphatase 58
Vital Signs:
Vital Signs
Temp Pulse Resp BP Pulse Ox
97.8 F 70 18 128/91 98
12/26/24 07:16 12/26/24 07:16 12/26/24 07:16 12/26/24 07:16 12/26/24 07:16
I&O
12/25/24 12/26/24 12/27/24
06:59 06:59 06:59
Intake Total 1580 / 1580
Balance 1580 / 1580
Review of Systems
-
History Source: Patient
All other systems: Reviewed and negative
Physical Exam
-
General: No Apparent Distress
HEENT: Normocephalic
Respiratory: Clear to Auscultation
GI: Soft, Nontender and Nondistended
Skin: Warm
Neuro: Awake, Alert, Oriented and AO x 3
Psych: Calm
[2024-12-26 09:48] VITALS: BP 127/87; PULSE 71; O2SAT 97
[2024-12-26 09:55] VITALS: BP 127/87; PULSE 76; O2SAT 96
--- NOTE | 2024-12-26 10:42 | PTOTSP ---
Speech Therapy Evaluation:
Swallow:
Pt presents with functional oral phase with no signs/symptoms of pharyngeal dysphagia. Pt did report occasionally biting R side of lip d/t reduced sensation and intermittent pocketing on R which he is able to independently clear with a lingual
sweep. No overt s/sx of aspiration across PO trials, WBC WNL, pt on RA, and pt passed 3oz swallow screen. Pt with no predisposing risk factors of dysphagia, however precipitating risk factor includes acute L MCA territory syndrome with further
workup ongoing. No chest imaging completes thus far.
Language:
Given acute L MCA territory syndrome with focal high grade stenosis of L M2 MCA, the Quick Aphasia Battery (QAB) form 1 was administered. Scores were as follows:
Word comprehension: 10.00
Sentence comprehension: 10.00
Word findin.00
Grammatical construction: 10.00
Speech motor programmin.00
Repetition: 10.00
Readin.00
QAB overall: 10.00 - no aphasia
Impression: Pt scored a 10.00 on the QAB, indicative of 'no aphasia' per parameters of this assessment. Scores were WFL across all subtests. Pt endorsed stumbling on a word or slurring a word here and there, however he is aware and able to
self-correct, therefore this does not appear to be impacting functional communication.
Recommend:
1. Continue regular solids and thin liquids
2. Medications as tolerated
3. General aspiration precautions
4. OIM ARCHITECT to briefly follow pending results of MRI, however oropharyngeal swallow and expressive/receptive language appear WFL at this time.
[2024-12-26 10:59] VITALS: BP 145/82
[2024-12-26 14:50] LABS: Amphetamines Negative (Negative); Barbiturates Negative (Negative); Benzodiazepines Negative (Negative); Buprenorphine Negative (Negative); Cocaine Negative (Negative); Marijuana Negative (Negative); Methadone Negative (Negative); Methamphetamines Negative (Negative); Opiates Negative (Negative); Phencyclidine Negative (Negative); Tricyclic Antidepressants Negative (Negative)
--- NOTE | 2024-12-26 14:58 | CM ---
Met with patient and his at bedside
Outpatient/Observation form explained; form signed @ 1450
[address] [facility] [address]
Family Physician: no specific PCP identified at [facility]; [address], [place] [address];
Patient and live in a multilevel home; have a 4 year old child; 3 steps to enter, 14-15 steps between floors; railings present; Powder room main level; 2nd floor bath has walk-in shower w/built in seat
PLOF: independent with ambulation, stairs, and ADLs; works maritime officer; drives
Spouse will transport home
Plan: discharge to home with outpatient PT services (script for PT requested from Attending)
[2024-12-26 15:08] VITALS: BP 127/83
--- NOTE | 2024-12-26 16:06 | W.DCSUMMARY ---
Discharge Summary
Discharge Data
Date of Admission: 12/25/24
Date of Discharge: 12/26/24
-
Pending Results: No
Hospital Course
49yo M with PMHx of HLD, ASCVD came with acute onset of paresthesia started with R fingers and traveled up his arm and to his R face, with feeling of numbness. Neurologist assessed patient and deemed not a candidate for TNK 2/2 low NIH score. CTA
reviewed by ED doctor with neurologist and no LVO identified, but focal high-grade stenosis within the proximal aspect of the inferior division of the left M2 segment of the middle cerebral artery. No carotid stenosis identified. No further mgmt
recommendation from neurologist for M2 stenosis. Telemetry without clinically significant arrhythmia. MRI brain with acute L thalamic stroke. Outpatient cleaner carpet and upholstery for thrombophilia w/u and cardio for cardiac recorder recommended. Plavix added for
21 days total and Lipitor increased. Medically stable to be d/c home with outpatient PT - Rx provided. Recommended to avoid travel and proceed with light duties at work for the next 30 days upon d/c
I have spent at least 39min reviewing chart, test results, providing direct patient care
Patient was managed for:
#CVA
#focal high-grade stenosis within the proximal aspect of the inferior division of the left M2 segment of the middle cerebral artery
#Elevated bilirubin
#Mild ALT elevation
#Fatty liver disease
#Alcohol use, unclear if abuse
#HLD
Discharge Plan
-
Activity Restrictions/Additional Instructions:
Schedule appoitment either with your existent sql ssrs developer or referred one for show jumping instructor
Referrals:
Boni Fernandes DO [Active] - in two to four weeks (for thrombophilia workup)
Billy Flores MD [Active] - in two to four weeks (for show jumping instructor)
Benedicto Panchal MD [Active] - in two to four weeks
UNKNOWN - PT NOT,INTERVIEWE [Family Provider] -
Prescriptions:
New
folic acid 1 mg Tablet
1 mg PO DAILY Qty: 30 0RF
atorvastatin 80 mg Tablet
80 mg PO QPM Qty: 30 0RF
clopidogrel 75 mg Tablet
75 mg PO DAILY Qty: 19 0RF
thiamine mononitrate (vit B1) 100 mg Tablet
100 mg PO DAILY Qty: 30 0RF
Continued
aspirin 81 mg Tablet,Delayed Release (Dr/Ec)
81 mg PO HS
ezetimibe 10 mg Tablet
10 mg PO HS
Discontinued
atorvastatin 40 mg Tablet
40 mg PO HS
Discharge Date and Time
Print Language: [place]
[2024-12-26] MEDS: LIPITOR 80 MG PO (17:20)
[2024-12-28 02:34] LABS: Beta-2-Glycoprotein I Ab. IgA <10 SAU (<=20); Beta-2-Glycoprotein I Ab. IgG <10 SGU (<=20); Beta-2-Glycoprotein I Ab. IgM <10 SMU (<=20)
[2024-12-28 18:17] LABS: Protein S Total Antigen 134 % (84-134)
[2024-12-28 18:45] LABS: Cardiolipin IgA Antibody <10 APL (<=11); Cardiolipin IgM Antibody <10 MPL (<=12); Cardiolipin Igg Antibody <10 GPL (<=14)
[2024-12-28 21:56] LABS: Protein C, Total Antigen >95 % (63-153)
[2024-12-29 21:49] LABS: Phosphatidylserine Ab, IgA 0 APS (0-19); Phosphatidylserine Ab, IgG 0 GPS (0-15); Phosphatidylserine Ab, IgM 0 MPS (0-21)
== END 2024-12-26 18:10 | disposition home or self-care (01) ==
LOC: 3 WEST ACU 16:56
PROVIDERS: Nurse Practitioner Family; Physician Assistant Medical; ADMITTING PHYSICIAN Internal Medicine; CONSULT PHYSICIAN Psychiatry & Neurology Neurology; EMERGENCY PHYSICIAN Student in an Organized Health Care Education/Training Program
DX: I63.9 Cerebral infarction, unspecified (principal); G83.21 Monoplegia of upper limb affecting right dominant side; R20.0 Anesthesia of skin; E78.00 Pure hypercholesterolemia, unspecified; R29.810 Facial weakness; K76.0 Fatty (change of) liver, not elsewhere classified; I10 Essential (primary) hypertension; R74.01 Elevation of levels of liver transaminase levels; F10.90 Alcohol use, unspecified, uncomplicated; I44.4 Left anterior fascicular block; I25.10 Atherosclerotic heart disease of native coronary artery without angina pectoris; M47.892 Other spondylosis, cervical region; Z82.49 Family history of ischemic heart disease and other diseases of the circulatory system; Z82.3 Family history of stroke; Z79.82 Long term (current) use of aspirin; Z79.899 Other long term (current) drug therapy; Z83.2 Family history of diseases of the blood and blood-forming organs and certain disorders involving the immune mechanism; Z98.890 Other specified postprocedural states; Z79.02 Long term (current) use of antithrombotics/antiplatelets
CPT/HCPCS: 70450; 70496; 70498; 70551; 76700; 80053; 80061; 80076; 80306; 82248; 82962; 83036; 83615; 84443; 84484; 85025; 85045; 85302; 85305; 85610; 85730; 86146; 86147; 86148; 86704; 86706; 86803; 87340; 92523; 92610; 93005; 93306; 97116; 97163; 97167; 97535; 99285; G0378; Q9967

== ENCOUNTER 2025-01-05 16:10 | Outpatient (RCR) | payer OTHER, SELFPAY | END 2025-01-05 23:59 | disposition home or self-care (01) | LOC: RPT 16:10 | PROVIDERS: ATTENDING PHYSICIAN Family Medicine | DX: I63.512 Cerebral infarction due to unspecified occlusion or stenosis of left middle cerebral artery (principal); M62.81 Muscle weakness (generalized); R20.0 Anesthesia of skin; R20.2 Paresthesia of skin | CPT/HCPCS: 97110; 97162; 97167; 97530; 97537 ==

== ENCOUNTER 2025-02-02 06:40 | Day surgery (SDC) | payer OTHER, SELFPAY ==
[2025-02-02 07:40] VITALS: BMI 27.0
--- NOTE | 2025-02-02 07:42 | ITS.CL.IMPLP ---
Table Cover Folder - Implant Loop
Implant Loop
Procedure Report:
Date of Procedure: February 02, 2025
Primary Care Provider: Dr. Kamila Baltazar
Primary football pad repairer: Dr. Lorraine Patton
Procedure: Insertable Loop Recorder Implantation
Indication:
Cryptogenic CVA
Procedure:
The patient was brought to the procedure area in a fasting state. The anterior chest was prepped and draped in standard sterile fashion. The fourth intercostal space along the left sternal border was identified and this area was anesthetized with 10
mL of 1% lidocaine. After gathering the skin in this area, a small punch incision was made at approx intercostal space 4-5 at left costo-sternal junction using the provided scalpel/punch tool. The loop recorder was loaded into the tunneling device.
A tunnel was created in the subcutaneous tissue at a 45� angle along the coronal plane away from the sternum and towards the left flank. The tunneling device was inverted and the plunger was depressed, inserting the loop recorder into the
subcutaneous space. The tunneling device was removed. Manual pressure provide hemostasis. Adequate signal was confirmed. The skin was closed with steri-strips. The estimated blood loss was < 1 cc. A clean dressing was placed over the wound.
There were no complications.
Implant:
[employer] Reveal LINQ II
Conclusion: Uncomplicated implantation of loop recorder.
Recommendation: Routine ILR care.
Copy:
Dr. Kamila Baltazar
Dr. Lorraine Patton
== END 2025-02-02 08:16 | disposition home or self-care (01) ==
LOC: CATH 06:40
PROVIDERS: ATTENDING PHYSICIAN Internal Medicine Cardiovascular Disease; FAMILY PHYSICIAN Family Medicine; OTHER PHYSICIAN Internal Medicine Cardiovascular Disease
DX: Z09 Encounter for follow-up examination after completed treatment for conditions other than malignant neoplasm (principal); Z86.73 Personal history of transient ischemic attack (TIA), and cerebral infarction without residual deficits; E78.5 Hyperlipidemia, unspecified; Z79.82 Long term (current) use of aspirin; Z79.899 Other long term (current) drug therapy
CPT/HCPCS: 33285; C1764

== ENCOUNTER → 2025-02-06 10:10 | Outpatient (REF) | payer OTHER, SELFPAY ==
--- NOTE | 2025-02-06 11:15 | PTCARENOTE ---
Pt here for Echo Bubble Study. Left median antecubital 22 G PC inserted, site clear. Bubble Study protocol followed with aseptic technique, pt tolerated well. Pt denies dizziness, denies any change in status. Heplock D/c ed at 1113, site clear,
no redness, no edema. 2x2 applied and taped. No change in status.
== END ==
LOC: RCS 10:10
PROVIDERS: ATTENDING PHYSICIAN Neuromusculoskeletal Medicine, Sports Medicine; FAMILY PHYSICIAN Family Medicine
DX: I63.412 Cerebral infarction due to embolism of left middle cerebral artery (principal)
CPT/HCPCS: 93307